=== PATIENT | male | born 1960 | race Two or more races ===

== ENCOUNTER → 2021-03-22 | Outpatient (CLI) | payer BC, OTHER ==
[~2021-03-22] MED LIST: ATROPINE SULFATE 1 MG/1 ML VIAL ONE; IOHEXOL 350 MG/ML 100ML IJ ONE; METOPROLOL TARTRATE 1MG/1ML-5ML VIAL IV ONE; NITROGLYCERIN 0.4 MG SL TAB SL ONE
[2021-03-22 09:54] LABS: Potassium 4.8 mmol/L (3.5-5.1)
[2021-03-22 09:58] LABS: BUN/Creatinine Ratio 18.3
== END | disposition home or self-care (01) ==
LOC: CT 08:15
DX: I25.10 Atherosclerotic heart disease of native coronary artery without angina pectoris (principal)
CPT/HCPCS: 36415; 75571; 75574; 80048; Q9967; J0461